=== PATIENT | female | born 1980 | race Caucasian/White ===

== ENCOUNTER 2016-11-14 10:38 | Emergency (ER) | payer BC, MEDICAID ==
[2016-11-14] MEDS ORDERED: ASPIRIN 81 MG CHEW TAB ONE (11:02)
== END 2016-11-14 14:44 | disposition home or self-care (01) ==
LOC: ER 10:38
DX: R07.89 Other chest pain (principal); I10 Essential (primary) hypertension
CPT/HCPCS: 36415; 71010; 80053; 82550; 83735; 83880; 84484; 85025; 85379; 85610; 85730; 93005